=== PATIENT | female | born 1990 | race Two or more races ===

== ENCOUNTER 2020-11-27 18:32 | Emergency (ER) | payer SELFPAY ==
[~2020-11-27] VITALS: Ht 165.1 cm; Wt 54.4 kg
[2020-11-27 18:59] VITALS: BP 127/78
[2020-11-27 19:39] LABS: BILIRUBIN,URINE NEGATIVE (NEGATIVE); COLOR,URINE YELLOW (YELLOW); LEUKOCYTE ESTERASE ,URINE NEGATIVE (NEGATIVE); NITRITE, URINE NEGATIVE (NEGATIVE); PH,URINE 8.5 (5.0-8.0); PROTEIN,URINE NEGATIVE (NEGATIVE); UGLUCOSE NEGATIVE (NEGATIVE); UROBILINOGEN,URINE 0.2 EU/dL (0.2)
[2020-11-27 20:04] LABS: BACTERIA,URINE None seen /HPF (None Seen); RBC,URINE 21-50 /HPF (0-2); WBC,URINE 0-2 /HPF (0-3)
[2020-11-27 20:05] LABS: MUCUS,URINE Few /LPF (None Seen)
[2020-11-27] MEDS ORDERED: PHEN-705 PO (20:21)
== END 2020-11-27 20:28 | disposition home or self-care (01) ==
LOC: ER 18:32
DX: R31.9 Hematuria, unspecified (principal)
CPT/HCPCS: 81001; 84703-TC; 87086-TC